=== PATIENT | male | born 1950 ===

== ENCOUNTER → 2021-05-12 | Outpatient (CLI) | payer OTHER ==
[~2021-05-12] VITALS: Ht 172.7 cm; Wt 96.2 kg
[~2021-05-12] MED LIST: CARBIDOPA-LEVO1 EAC2 PO; GLUMETZA1000 PO; HYDROCHLOROTHIA25 M1 PO; JARDIANCE10 MG PO; LANTUS SUBQ; LIPITOR 40 MG T40 M1 PO; NORCO 10-325 T1 EACH PO; RAMIPRIL10 MG PO; TOPROL XL25 MG PO; TRULICITY0.75 MG/0. SUBQ; VICTOZA0.6 MG/0.1 SUBQ
--- NOTE | ~2021-05-12 | HPC ---
[facility] [address] [place] [address] PAIN MANAGEMENT CONSULTATION Name: NO CHRISTIANSON Room #: REG YAMILE Bobby.#: [id number] Admission: 05/12/21 Attend Phys: Jaspreet Cosme DO Discharge: Date of : 52 Report #: [id number] THIS REPORT FOR: cc: Familia Linton MD, David P. MD Johnson, James E. DO ~ cc: Familia Linton DATE OF SERVICE: 05/12/2021 REFERRING PHYSICIAN: Dr. Familia Linton with [facility]. CHIEF COMPLAINT: Low back pain, bilateral lower extremity pain. HISTORY OF PRESENT ILLNESS: As you know, the patient is a pleasant 70-year-old male who reports acute onset of low back pain and bilateral lower extremity pain that presented after a fall out of his bed, which happened in early portion of April. The patient denies any other specific injury or trauma that may have been the source of symptoms. He reported spontaneous onset of back symptoms. He trialed conservative treatment, but this did not lead to any improvement. He went to the Emergency Department for further evaluation where they did an MRI of the cervical spine, which showed an old compression fracture at L1 that is well corticalized and healed. There was a possible noted right transverse process fracture at L5, though it was not well delineated in the imaging. There was severe central canal stenosis at the L4-5 level and this was based on the CT examination that was provided to us dated 05/07/2021. The patient indicates that he has had previous low back symptoms in the past that was treated with conservative therapy and chiropractic manipulation. This was due to lumbar radiculopathy secondary to severe central canal stenosis, which is noted at the L4-5 level. The patient indicates his pain is only present with standing and walking, which rules out the L1 fracture as a source of pain as his pain would be exacerbated with the seated position. He states pain is completely resolved with seated position. He does have some difficulty with lying down. He has been referred to our service to discuss treatment options to address ongoing pain. The patient indicates his pain is periodic, intermittent and brief. He states pain is completely resolved with a seated position. He states his pain is pulling, sharp, stabbing, tender when describing symptoms. Places current pain score anywhere from 8-10/10. Daily average at 10/10. Worst pain has been at 10/10. The patient states pain is exacerbated with trying to lie down or stand or walk. Improves with sitting down. He has been referred to our clinic after failing conservative treatment options and being advised at the Emergency Department no options for treatment were available including interventional therapies. PAST MEDICAL HISTORY: [address] [address] PAIN MANAGEMENT CONSULTATION Name: NO CHRISTIANSON Room #: REG YAMILE Monsivais#: [id number] Admission: 05/12/21 Attend Phys: Jaspreet Cosme DO Discharge: Date of : 52 Report #: [id number] 1. Diabetes mellitus type 2. 2. Hypertension. 3. Severe Parkinson's syndrome. 4. Depression. 5. Chronic neuropathy. 6. Hyperlipidemia. 7. History of orthostatic hypotension. PAST SURGICAL HISTORY: Reported as none recent. No further description. SOCIAL HISTORY: The patient denies tobacco, alcohol or IV or illicit drug use. He is retired. He has been retired for years due to his underlying Parkinson's syndrome. He is not receiving disability income. He is not in litigation in regards to pain. He is accompanied by family members present in room today who are providing the majority of the patient's history. REVIEW OF SYSTEMS: Positive for fatigue and weakness, wearing corrective eyewear, constipation, interspersed with diarrhea, numbness and tingling sensations in the lower extremities bilaterally, insulin-dependent diabetes, Parkinson's syndrome with Parkinson's movement disorder symptoms. All other review of systems negative per 12-point review of systems other than those listed in history of present illness. Pain impact score 67 of 70. Complete interference of daily activities secondary to pain. IMAGING: CT lumbar spine obtained on 05/07/2021 shows L1-2 unremarkable. There is a moderate superior compression fracture of L1, well corticalized and healed. This is chronic in nature. There is 60% loss of height without retropulsion. L2-3, L3-4 shows normal alignment. L4-5 shows moderate posterior disc bulge, facet arthropathy, ligament flavum hypertrophy resulting in severe central canal stenosis as well as some moderate bilateral neural foraminal stenosis. L5-S1 shows mild facet degenerative changes, ligamentum flavum hypertrophy, central canal stenosis, which is mild to moderate with severe left lateral recess stenosis. 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 PQRS: The patient has known arthritic changes of the lumbar spine based on CT examination. No rheumatoid arthritis. He is placing current pain score 10/10. He is a fall risk and in extreme risk for falls. He has had falls over the past 3 months due to his underlying Parkinson's disease and movement disorder. He utilizes a roller walker for ambulation when he is able to do so. He is not on blood thinners, but is treated for hypertension. He is on opioids, but not chronically. He has a low opioid addiction potential based on his assessment tool. Pain impact remains high at 67 of 70, near complete interference of daily activities secondary to pain. [facility] [address] [place] [address] PAIN MANAGEMENT CONSULTATION Name: NO CHRISTIANSON Room #: REG [facility]#: [id number] Admission: 05/12/21 Attend Phys: Jaspreet Cosme DO Discharge: Date of : 51 Report #: [id number] PHYSICAL EXAMINATION: VITAL SIGNS: Blood pressure 134/74, pulse is 73, respiratory rate 14 and unlabored. The patient is 95% on room air. Height 5 feet 8 inches tall, weight 212 pounds, BMI calculated 32.2. GENERAL: Well-developed, well-nourished, well-hydrated 70-year-old male. He appears somewhat disheveled today, rating current pain score anywhere from 8-10/10. HEENT: Normocephalic, atraumatic. Pupils are round. He is wearing a mask in compliance with COVID-19 regulations and hospital policy. LUNGS: Appear clear. No wheeze, rhonchi or rales. CARDIOVASCULAR: Regular. No appreciable gallop, no rub. ABDOMEN: Soft, mildly obese. EXTREMITIES: Show no clubbing, no cyanosis, no edema. MUSCULOSKELETAL: There is tenderness to palpation over the lower lumbar spine. No spinous process tenderness. There is no ecchymosis or changes concerning of bruising from any new fracture. Seated straight leg raising negative. Supine straight leg raising is positive about 60-degree angle on the right. Fabere's test is negative. Modified Gaenslen's positive for axial low back pain. Ankle clonus negative. Babinski is negative. Gait is extremely antalgic. This is related more to his underlying movement disorder secondary to Parkinson's disease. ASSESSMENT: 1. Severe central canal stenosis of lumbar spine. 2. Facet arthropathy of lumbar spine. 3. Chronic L1 compression fracture without new changes. 4. Possible transverse process fracture at the L5 on the right, though this could be a nonunion not well imaged on CT examination. 5. Lumbar degeneration. 6. Intractable pain. PLAN: 1. Based on today's physical exam and history the patient has provided, the description the patient uses in regards to pain as well as the current location of the likely source of the patient's pain, it is twofold. It appears he is suffering from progressively worsening central canal stenosis with the symptoms radiating from the low back down the legs bilaterally. This is consistent with central canal issues and the fall from the bed may have exacerbated his central canal problem. As indicated above, CT examinations are not very efficient or effective at evaluating soft tissue, specifically central canal stenosis and neural foraminal stenosis as well as any lateral recess stenosis. It is noted on the CT examination that the L1 fracture is chronic in nature, is well corticalized and is not the source of symptoms. There is no retropulsion to be concerned with. There might be a change at the transverse process of L5 on the right, though he is not tender over this area significantly more than he is on [address] [address] PAIN MANAGEMENT CONSULTATION Name: NO CHRISTIANSON Room #: JAXON YAMILE Monsivais#: [id number] Admission: 05/12/21 Attend Phys: Jaspreet Cosme DO Discharge: Date of : 52 Report #: [id number] the left and thus this may actually be a malunion or congenital issue that has been present for years. If we believe that the fracture is present and treatment would be necessary, imaging with an MRI would be recommended, though given his underlying debility secondary to his Parkinson's disease, I do not feel he would need a surgical correction of the transverse process, which is very rarely done. We did discuss with the patient that his symptoms, if related to this fracture, should improve over time. We would recommend conservative treatment from a medication and anti-inflammatory standpoint for which primary care has initiated treatment. We discussed the treatment options for the lumbar radicular symptoms secondary to central canal stenosis today. The following was discussed with the patient 1. We discussed physical therapy, stretching exercises, core strengthening as a treatment approach. This would be limited somewhat by his underlying Parkinson's disease and movement disorder, which would limit his capabilities. We would also suggest possible changes in medication management including increasing his current gabapentin dose as a treatment course. We discussed lumbar epidural injections under fluoroscopic guidance for which the patient was referred to our clinic. We also discussed surgical options with the patient, which may ultimately be necessary given the severity of the central canal stenosis at the L4-5 level noted [address] CT examination dated 05/07/2021. After reviewing the risks and benefits of all proposed treatment options, the patient chose to move forward with a lumbar epidural injection under fluoroscopic guidance. 2. The patient has been advised risks and benefits of a lumbar epidural injection. These risks include but are not necessarily limited to bleeding, bruising, infection, worsening pain, no relief of pain, also risk of temporary or permanent muscle weakness, temporary or permanent nerve damage, possible paralysis, post-dural puncture, headache and . The patient states understood and wished to proceed. 3. No medication changes were made at today's visit. The patient will continue current medical therapy as prior prescribed. 4. We plan to see the patient back in followup visit in approximately 1 month. At that time, review the efficacy of the injection provided today to determine if next in the series of epidural injections might be necessary. 5. We wish to thank Dr. Linton for the referral of the patient to our clinic. We will keep you apprised of his response to treatment as we address central canal stenosis and any residual pain related to his fall. Again, we wish to thank you for the opportunity to see the patient in consultation. PROCEDURE NOTE. DESCRIPTION OF PROCEDURE: L5-S1 interlaminar epidural steroid injection under fluoroscopic guidance. After obtaining written consent, the patient was taken back to fluoroscopy suite, placed in prone position, pillow under abdomen to decrease lumbar [address] [address] PAIN MANAGEMENT CONSULTATION Name: NO CHRISTIANSON Room #: REG YAMILE Monsivais#: [id number] Admission: 05/12/21 Attend Phys: Jaspreet Cosme DO Discharge: Date of : 51 Report #: [id number] lordosis. Skin overlying lumbosacral area prepped and draped in aseptic fashion. The L5-S1 vertebral interspace identified by AP fluoroscopy. Skin and subcutaneous tissue overlying target site of injection anesthetized with 3 mL 1% lidocaine. A 20 gauge 3.5 inch Tuohy needle advanced under fluoroscopic guidance towards the epidural space using a parasagittal approach. Epidural space identified using loss of resistance to air technique. After negative aspiration for heme or cerebrospinal fluid, 1 mL of Omnipaque injected. Lumbar epidurogram was confirmed using both AP and lateral fluoroscopy. After negative aspiration for heme or cerebrospinal fluid, 5 mL solution containing 2 mL 80 mg total triamcinolone along with 3 mL of lidocaine, 1% injected slowly. Needle retracted group home, flushed with 1 mL of 1% lidocaine and removed. Sterile bandage placed over injection site. No new motor deficits present in lower extremity following procedure. The patient tolerated the procedure well, carefully escorted to recovery room in stable condition. No apparent complications. After meeting discharge criteria, the patient discharged home. By: [id number] Jaspreet Cosme DO /nt
[2021-05-12 13:06] VITALS: BP 134/74
--- NOTE | 2021-05-12 13:43 | NUR ---
Pain Clinic Assessment: 1. History of Osteoarthritis: History of Rheumatoid Arthritis: NECK BACK 2. Height: 5 ft. 8 in. 172.7 cm. Weight: 212.0 lb. oz. 96.163 kg. Patient's BMI: 32.2 3. Vital Signs: BP: 134/74 Pulse: 73 Resp: 14 Temp: 02 Sat: 95 ECG Mon: 4. Pain Intensity: 10 5. Fall Risk: Dizziness: N Needs help standing or walking: Y Fallen in the last 3 months: Y Fall risk comments: 6. Patient on Blood Thinner: None 7. History of Hypertension: Y 8. Opioid Therapy greater than 6 weeks: N Opiate Contract Signed: 9. Risk Assessment Tool Provided: 0-3 LOW RISK 10. Functional Assessment Tool: 67/70 11. Recreational Drug Use: Never Drug Type: Tobacco Use: Former Smoker Tobacco Type: Amount or Packs/day: How Many Years: Alcohol Use: No Frequency: Quant:
== END | disposition home or self-care (01) ==
LOC: PAIN 09:54
PROVIDERS: ATTEND Anesthesiology Pain Medicine
DX: M54.59 Other low back pain (principal); M48.061 Spinal stenosis, lumbar region without neurogenic claudication; M51.36 Other intervertebral disc degeneration, lumbar region; M47.896 Other spondylosis, lumbar region; G89.29 Other chronic pain; S32.010A Wedge compression fracture of first lumbar vertebra, initial encounter for closed fracture; I10 Essential (primary) hypertension; M19.90 Unspecified osteoarthritis, unspecified site; E11.40 Type 2 diabetes mellitus with diabetic neuropathy, unspecified; F32.9 Major depressive disorder, single episode, unspecified; G20 Parkinson's disease; E78.5 Hyperlipidemia, unspecified; Z98.890 Other specified postprocedural states; Z79.899 Other long term (current) drug therapy; Z79.891 Long term (current) use of opiate analgesic; X58.XXXA Exposure to other specified factors, initial encounter; Y93.89 Activity, other specified; Y92.89 Other specified places as the place of occurrence of the external cause; Y99.8 Other external cause status

== ENCOUNTER → 2021-05-26 | Outpatient (CLI) | payer OTHER ==
[~2021-05-26] VITALS: Ht 172.7 cm; Wt 93.6 kg
[~2021-05-26] MED LIST changes: +TRAMADOL 50 MG50 MG PO
--- NOTE | ~2021-05-26 | HPC ---
[facility] [address] [place] [place] [address] PAIN MANAGEMENT CONSULTATION Name: NO CHRISTIANSON Room #: REG YAMILE Bobby.#: [id number] Admission: 05/26/21 Attend Phys: Jaspreet Cosme DO Discharge: Date of : 52 Report #: [id number] THIS REPORT FOR: cc: Familia Linton MD, David P. MD Johnson, James E. DO ~ cc: Familia Linton DATE OF SERVICE: 05/26/2021 CHIEF COMPLAINT: Low back pain, bilateral lower extremity pain. HISTORY OF PRESENT ILLNESS: As you know, the patient is a pleasant 70-year-old male, reporting acute onset of low back pain, bilateral lower extremity pain, presenting after a fall out of his bed. This happened in the early portion of April. He underwent imaging that showed a compression fracture at L1 on that imaging study, which is chronic in nature and was not from the fall he sustained in April. He did have what might be a fracture of the transverse process on the right at the L5 level, which is consistent with some axial back pain he is experiencing, but would not be the source of the bilateral lower extremity pain. We had the patient undergo a lumbar epidural injection under fluoroscopic guidance as he has severe central canal stenosis, which was the source of the patient's lower extremity symptoms with complete resolution of that pain. He now places pain score 0/10. He returns today in followup visit. States that the axial back pain he is experiencing is well controlled with the current hydrocodone treatment. Unfortunately, there is no treatment for transverse process fractures. These have to heal on their own. I believe over the next couple of months that will happen. The L1 compression fracture as indicated was chronic in nature and will not be amenable to treatment. We are pleased to see the patient has done well with the epidural injection. He returns today in followup visit to discuss options for treatment. He is complaining of some orthostatic hypotension. He wants to discuss that he has been noticing increasing of late. He has not suffered any falls or new injury. ALLERGIES: No known drug allergies. CURRENT MEDICATIONS: Victoza 1.8 mg subcutaneous per day, hydrochlorothiazide 25 mg once a day, atorvastatin 40 mg per day, ramipril 10 mg per day, carbidopa/levodopa 25/100 mg once a day, metformin 1000 mg b.i.d., metoprolol 25 mg b.i.d., Trulicity 0.75 mg subcutaneous per week, Lantus 110 units subcutaneous before bedtime, hydrocodone/acetaminophen 10/325, one tab b.i.d. p.r.n., Jardiance 10 mg once a day. SOCIAL HISTORY: The patient denies tobacco use. Denies alcohol or IV or illicit drug use. He is retired, retired years ago. He is accompanied by his and daughter [place] [address] PAIN MANAGEMENT CONSULTATION Name: NO CHRISTIANSON Room #: REG YAMILE Monsivais#: [id number] Admission: 05/26/21 Attend Phys: Jaspreet Cosme DO Discharge: Date of : 52 Report #: [id number] IMAGING: No new imaging available. PQRS: The patient has known arthritic changes of lumbar spine. No rheumatoid arthritis. He is placing pain intensity 0/10. He is a fall risk, but has not had a fall in last 3 months. He is not on blood thinners, but is treated for hypertension. He is on chronic opioids and has a low opioid addiction potential based on assessment tool. Pain impact is a 25/70. PHYSICAL EXAMINATION: VITAL SIGNS: Blood pressure 112/59, pulse 73, respiratory rate 20, unlabored. The patient is 97% on room air. Height 5 feet 8 inches tall, weight 206.4 pounds, BMI calculated 31.4. GENERAL: A well-developed, well-nourished, well-hydrated 70-year-old male appearing stated age, pain is rated 0/10. HEENT: Normocephalic, atraumatic. Pupils are round. He is wearing a mask in compliance with COVID-19 regulations. EXTREMITIES: Show no clubbing, no cyanosis, no edema. MUSCULOSKELETAL: Seated straight leg raising negative. Supine straight leg raising remains positive, again at about a 60-degree angle. Modified Gaenslen's positive for axial back pain. There is some palpatory tenderness over the paraspinal musculature of the lower lumbar spine. No spinous process tenderness. ASSESSMENT: 1. Symptomatic lumbar radiculopathy. 2. Severe central canal stenosis of lumbar spine. 3. Facet arthropathy of lumbar spine. 4. Transverse process fracture of L5 on the right. 5. Lumbar degeneration. 6. Orthostatic hypotension. 7. Chronic intractable pain. PLAN: 1. The patient returns today in followup visit having noted near complete resolution of his back pain and lower extremity symptoms with the epidural injection provided at last visit. This would indicate the source of the majority of his pain is the central canal stenosis noted on imaging studies. He does have some axial back pain, for which he takes p.r.n. hydrocodone. This appears to be related more to that L5 transverse process fracture on the right. I would recommend that he continue on the treatment for that condition as he heals from the transverse process fracture. There are no surgical options necessary to address this if he has a painful process initially, but as he heals symptoms will improve quite rapidly. We are pleased to see has done well with the epidural injection. We have planned to have the patient undergo an epidural injection today, but given his pain level of 0, we would not make any sense to utilize that injection as we only have 4 total injections per year based on the [facility] [address] [place] [address] PAIN MANAGEMENT CONSULTATION Name: NO CHRISTIANSON Room #: REG [facility] Yodit#: [id number] Admission: 05/26/21 Attend Phys: Jaspreet Cosme DO Discharge: Date of : 51 Report #: [id number] new Medicare guidelines. The patient is agreeable to delay the injection, until which time his pain intensifies or returns. I did advise the patient if his symptoms do reoccur, to return as quickly as possible if the symptoms do not resolve spontaneously. 2. The patient is describing what appears to be orthostatic hypotension. It would seem that he is quite dehydrated and I think this is ___ issue. The patient states he has to self-cath up 7 to 10 times a day and there is an excessive amount of urine with each catheterization. This would indicate that the patient is likely volume contracted and this is leading to his hypotensive episodes. He is noticing dizziness upon standing or standing for any length of time. He is also complaining of other issues that would be consistent with dehydration including progressively worsening constipation and dryness of the mucous membranes. The patient does have a Urologist and I recommend the patient follow up with Urology immediately. The fact that he is having to self-cath 7 to 10 times a day is usual at best. I do feel that further evaluation is necessary. If there is no discernible source of his excessive urination and sensation of needing to urinate that can be found, I would recommend the patient to be evaluated for neurogenic bladder. He has significant central canal stenosis and the source of this could be that he has a neurogenic findings causing bladder dysfunction and would also be causing some of his constipation issues. We will defer to the Urology team for that evaluation. I have requested the patient to contact Urology immediately and be further evaluated because I do feel his orthostatic hypotension is due to dehydration and the self-cathing issue is quite concerning. 3. We will see the patient back in followup visit on an as needed basis. I am pleased to see the patient has done well with the current treatment. We will see him back on an as needed basis for epidural injection under fluoroscopic guidance. By: [id number] Jaspreet Cosme DO /nt
[2021-05-26 13:26] VITALS: BP 112/59
--- NOTE | 2021-05-26 13:49 | NUR ---
Pain Clinic Assessment: 1. History of Osteoarthritis: History of Rheumatoid Arthritis: NECK BACK 2. Height: 5 ft. 8 in. 172.7 cm. Weight: 206.4 lb. oz. 93.623 kg. Patient's BMI: 31.4 3. Vital Signs: BP: 112/59 Pulse: 73 Resp: 20 Temp: 02 Sat: 97 ECG Mon: 4. Pain Intensity: 0 5. Fall Risk: Dizziness: N Needs help standing or walking: Y Fallen in the last 3 months: N Fall risk comments: 6. Patient on Blood Thinner: None 7. History of Hypertension: Y 8. Opioid Therapy greater than 6 weeks: N Opiate Contract Signed: 9. Risk Assessment Tool Provided: 0-3 LOW RISK 10. Functional Assessment Tool: / 11. Recreational Drug Use: Never Drug Type: Tobacco Use: Former Smoker Tobacco Type: Amount or Packs/day: How Many Years: Alcohol Use: No Frequency: Quant:
== END ==
LOC: PAIN 10:46
PROVIDERS: ATTEND Anesthesiology Pain Medicine
DX: M47.26 Other spondylosis with radiculopathy, lumbar region (principal); M48.061 Spinal stenosis, lumbar region without neurogenic claudication; M51.16 Intervertebral disc disorders with radiculopathy, lumbar region; I10 Essential (primary) hypertension; G89.29 Other chronic pain; M79.661 Pain in right lower leg; M79.662 Pain in left lower leg; Z79.899 Other long term (current) drug therapy; Z79.84 Long term (current) use of oral hypoglycemic drugs